=== PATIENT | female | born 1950 | race Caucasian/White ===

== ENCOUNTER → 2017-11-20 | Emergency (ER) | payer MEDICARE, MEDICAID, OTHER | END | disposition home or self-care (01) | LOC: FTE 20:11 | DX: R23.8 Other skin changes (principal); I10 Essential (primary) hypertension; J45.909 Unspecified asthma, uncomplicated; F17.210 Nicotine dependence, cigarettes, uncomplicated; Z79.82 Long term (current) use of aspirin; Z85.3 Personal history of malignant neoplasm of breast | CPT/HCPCS: 99283 ==